=== PATIENT | male | born 2000 | race Caucasian/White ===

== ENCOUNTER 2022-03-20 11:29 | Emergency (ER) | payer MEDICAID, OTHER ==
[~2022-03-20] VITALS: Ht 162.6 cm; Wt 60.0 kg
[2022-03-20] MEDS ORDERED: AMOX-494 MT (14:44)
[2022-03-20] MEDS ORDERED: IBUP-2029 MT (14:44)
[2022-03-20] MEDS ORDERED: IBUPROFEN 600MG TABLET PO ONE (14:45)
[2022-03-20 15:09] VITALS: BP 126/75
== END 2022-03-20 15:10 | disposition home or self-care (01) ==
LOC: ER 11:29
DX: J02.9 Acute pharyngitis, unspecified (principal); F32.9 Major depressive disorder, single episode, unspecified; F41.9 Anxiety disorder, unspecified; Z20.822 Contact with and (suspected) exposure to COVID-19
CPT/HCPCS: 87070; 87426; 87430; 99283; C9803